=== PATIENT | female | born 1965 | race Caucasian/White ===

== ENCOUNTER → 2023-12-21 11:23 | Outpatient (REF) | payer OTHER, SELFPAY | LOC: WDC 11:23 | PROVIDERS: ATTENDING PHYSICIAN Obstetrics & Gynecology; FAMILY PHYSICIAN Physician Assistant | DX: Z12.31 Encounter for screening mammogram for malignant neoplasm of breast (principal); Z00.00 Encounter for general adult medical examination without abnormal findings; M25.551 Pain in right hip; Z01.84 Encounter for antibody response examination; M25.511 Pain in right shoulder; M25.512 Pain in left shoulder | CPT/HCPCS: 73030; 73502; 77063; 77067 ==

== ENCOUNTER → 2024-03-08 09:36 | Outpatient (REF) | payer OTHER, SELFPAY | LOC: RAD 09:36 | PROVIDERS: ATTENDING PHYSICIAN Internal Medicine Rheumatology; FAMILY PHYSICIAN Physician Assistant | DX: Z13.220 Encounter for screening for lipoid disorders (principal); M54.2 Cervicalgia; E55.9 Vitamin D deficiency, unspecified; E53.8 Deficiency of other specified B group vitamins; D86.9 Sarcoidosis, unspecified | CPT/HCPCS: 71046; 72040 ==

== ENCOUNTER → 2025-05-16 14:26 | Outpatient (REF) | payer OTHER, SELFPAY | LOC: WDC 14:26 | PROVIDERS: ATTENDING PHYSICIAN Obstetrics & Gynecology; FAMILY PHYSICIAN Physician Assistant | DX: Z12.31 Encounter for screening mammogram for malignant neoplasm of breast (principal) | CPT/HCPCS: 77063; 77067 ==